=== PATIENT | male | born 1935 | race Caucasian/White ===

== ENCOUNTER 2017-05-18 15:05 | Emergency (ER) | payer OTHER ==
[~2017-05-18] VITALS: Ht 170.2 cm; Wt 56.0 kg
[~2017-05-18 15:05] MED LIST: ALLO300T2 PO; NORV5TAB PO; TERA2CAP3 PO; ZOCO40TA PO
[2017-05-18 15:07] VITALS: BP 141/65; PULSE 60; RESP 13; TEMP 98.4; O2SAT 96
[2017-05-19] MEDS ORDERED: SIMV40TA PO (08:11)
[2017-05-19] MEDS ORDERED: AMLO5 PO (08:11)
[2017-05-19] MEDS ORDERED: ALLO300T2 PO (08:11)
[2017-05-19] MEDS ORDERED: TERA2CAP3 PO (08:11)
[2017-05-19] MEDS ORDERED: MACR100C2 PO (08:21)
== END 2017-05-18 17:03 | disposition left against medical advice (07) ==
LOC: NED 15:05
DX: R10.9 Unspecified abdominal pain (principal); Z53.21 Procedure and treatment not carried out due to patient leaving prior to being seen by health care provider
CPT/HCPCS: 99281

== ENCOUNTER 2017-05-19 07:10 | Emergency (ER) | payer OTHER ==
[~2017-05-19] VITALS: Ht 170.2 cm; Wt 56.0 kg
[2017-05-19 07:14] VITALS: BP 112/67; PULSE 66; RESP 14; TEMP 98.1; O2SAT 97
[2017-05-19 07:30] VITALS: BP 143/68; PULSE 54; RESP 18; O2SAT 96
[2017-05-19] MEDS ORDERED: SODIUM CHLORIDE 0.9% FLUSH 10 ML FLUSH IV FLUSH PRN (07:30)
--- NOTE | 2017-05-19 07:30 | PD ---
HPI Chief Complaint: Complaint Time Seen by Provider: 07:23 Travel History International Travel<30 days: No Contact w/Intl Traveler<30days: No Traveled to known affect area: No History of Present Illness HPI 82-year-old male with history of bladder/ureteral cancer, undergoing care at the [facility], here for evaluation of gross hematuria. The patient has had gross hematuria for the last 4 days. A couple days ago he passed some large blood clots. Since last night his urine has gone from dark red to light pink. He is able to urinate. He did have some dysuria a few days ago. No abdominal pain. No fevers or chills. About a month ago he had 5 tumors removed, and had cystoscopy at that time. He is not on any antiplatelets or anticoagulants. PFSH Past Medical History Cancer: Yes High Cholesterol: Yes Diminished Hearing: No Gout: Yes Genitourinary: Yes (BPH) Kidney Stones: Yes Immunizations Current: Yes Past Surgical History Genitourinary Surgery: Yes (COLON POLYPS REMOVED BY ABD INCISION) Tonsillectomy: Yes Other Surgery: Yes (SEPTAL DEVIATION FIXED AFTER FX NOSE) Social History Alcohol Use: No Tobacco Use: Yes (12ppd) Substance Use: No Allergies-Medications (Allergen,Severity, Reaction): Coded Allergies: Sulfa (Sulfonamide Antibiotics) (Unverified Allergy, Severe, 05/19/17) Reported Meds & Prescriptions Reported Meds & Active Scripts Active Reported Terazosin (Terazosin HCl) 2 Mg Cap 2 Mg PO HS Simvastatin 40 Mg Tab 40 Mg PO HS Norvasc (Amlodipine Besylate) 5 Mg Tab 5 Mg PO DAILY Allopurinol 300 Mg Tab 300 Mg PO DAILY Review of Systems Except as stated in HPI: all other systems reviewed are Neg Physical Exam Narrative GENERAL: Well-developed, well-nourished, pleasant, comfortable, no apparent distress. SKIN: Focused skin assessment warm/dry. No pallor. HEAD: Atraumatic. Normocephalic. EYES: Pupils equal and round. No scleral icterus. No injection or drainage. ENT: Mucous membranes pink and moist. CARDIOVASCULAR: Regular rate and rhythm. RESPIRATORY: No accessory muscle use. Clear to auscultation. Breath sounds equal bilaterally. GASTROINTESTINAL: Abdomen soft, non-tender, nondistended. MUSCULOSKELETAL: No obvious deformities. No clubbing. No cyanosis. No edema. NEUROLOGICAL: Awake and alert. No obvious cranial nerve deficits. Motor grossly within normal limits. Normal speech. PSYCHIATRIC: Appropriate mood and affect; insight and judgment normal. Data Data Last Documented VS Vital Signs Date Time Temp Pulse Resp B/P (MAP) Pulse Ox O2 Delivery O2 Flow Rate FiO2 05/19/17 07:30 54 18 05/19/17 07:30 143/68 (93) 96 Room Air 05/19/17 07:14 98.1 Orders Orders Basic Metabolic Panel (Bmp) (05/19/17 07:28) Complete Blood Count With Diff (05/19/17 07:28) Prothrombin Time / Inr (Pt) (05/19/17 07:28) Act Partial Throm Time (Ptt) (05/19/17 07:28) Urinalysis - C+S If Indicated (05/19/17 07:28) Iv Access Insert/Monitor (05/19/17 07:28) Ecg Monitoring (05/19/17 07:28) Oximetry (05/19/17 07:28) Sodium Chloride 0.9% Flush (Ns Flush) (05/19/17 07:30) Urine Culture (05/19/17 07:40) Labs Laboratory Tests Test 05/19/17 07:40 05/19/17 07:46 Urine Color RED Urine Turbidity HAZY Urine pH 6.0 Urine Specific [place] 1.009 Urine Protein 100 mg/dL Urine Glucose (UA) NEG mg/dL Urine Ketones NEG mg/dL Urine Occult Blood LARGE Urine Nitrite NEG Urine Bilirubin NEG Urine Urobilinogen LESS THAN 2.0 MG/DL Urine Leukocyte Esterase SMALL Urine RBC /hpf Urine WBC /hpf Urine Bacteria MANY /hpf Microscopic Urinalysis Comment CULTURE INDICATED White Blood Count 6.1 TH/MM3 Red Blood Count 3.54 MIL/MM3 Hemoglobin 12.0 GM/DL Hematocrit 34.4 % Mean Corpuscular Volume 97.0 FL Mean Corpuscular Hemoglobin 34.0 PG Mean Corpuscular Hemoglobin Concent 35.0 % Red Cell Distribution Width 13.9 % Platelet Count 179 TH/MM3 Mean Platelet Volume 8.2 FL Neutrophils (%) (Auto) 65.7 % Lymphocytes (%) (Auto) 21.8 % Monocytes (%) (Auto) 10.0 % Eosinophils (%) (Auto) 1.8 % Basophils (%) (Auto) 0.7 % Neutrophils # (Auto) 4.0 TH/MM3 Lymphocytes # (Auto) 1.3 TH/MM3 Monocytes # (Auto) 0.6 TH/MM3 Eosinophils # (Auto) 0.1 TH/MM3 Basophils # (Auto) 0.0 TH/MM3 CBC Comment DIFF FINAL Differential Comment Prothrombin Time 10.4 SEC Prothromb Time International Ratio 0.9 RATIO Activated Partial Thromboplast Time 22.6 SEC Blood Urea Nitrogen 21 MG/DL Creatinine 1.37 MG/DL Random Glucose 103 MG/DL Calcium Level 8.6 MG/DL Sodium Level 142 MEQ/L Potassium Level 3.8 MEQ/L Chloride Level 109 MEQ/L Carbon Dioxide Level 27.2 MEQ/L Anion Gap 6 MEQ/L Estimat Glomerular Filtration Rate 50 ML/MIN MDM Medical Decision Making Medical Screen Exam Complete: Yes Emergency Medical Condition: Yes Medical Record Reviewed: Yes Differential Diagnosis Hematuria secondary to bladder/ureteral cancer, UTI, anemia Narrative Course Vital signs are within normal limits. CBC shows WBC 6.1, hemoglobin 12, hematocrit 34.4, platelets 179. BMP is markable for BUN 21, creatinine 1.37, GFR 50 which is around his baseline. UA shows large occult blood, small leukocyte esterase, innumerable rbc's, innumerable wbc's, many bacteria. The patient had a UTI in 2014 that grew E. faecalis that was sensitive to Macrobid. I will start him on Macrobid today. He is able to urinate. He is stable for discharge home with outpatient follow-up with his primary care physician this week. He was informed on when to return to the emergency department. He verbalizes understanding and agreement with plan. Diagnosis Primary Impression: UTI (urinary tract infection) Qualified Codes: N39.0 - Urinary tract infection, site not specified; R31.9 - Hematuria, unspecified Additional Impression: Gross hematuria Referrals: Primary Care Physician 3 days Additional Instructions: Follow-up with your primary care physician this week. Return to the emergency department for worsening symptoms or any other concerns. Scripts Nitrofurantoin Monohydrate Macrocrystals (Macrobid) 100 Mg Cap 100 MG PO BID for Infection for 7 Days, #14 CAP 0 Refills Prov: Bib Renee MD 05/19/17 Disposition: 01 DISCHARGE HOME Condition: Stable Bib Renee MD May 19, 2017 07:30
[2017-05-19 08:04] LABS: BASOPHIL % 0.7 % (0.0-2.0); EOSINOPHIL # 0.1 TH/MM3 (0-0.4); EOSINOPHIL % 1.8 % (0.0-4.0); HEMATOCRIT 34.4 % (39.0-51.0); HEMO FLAGS DIFF FINAL; LYMPH % 21.8 % (9.0-44.0); LYMPHOCYTE # 1.3 TH/MM3 (1.0-4.8); NEUT % 65.7 % (16.0-70.0); PLATELET COUNT 179 TH/MM3 (150-450); RED BLOOD COUNT 3.54 MIL/MM3 (4.50-5.90); RED CELL DISTRIBUTION WIDTH 13.9 % (11.6-17.2); WHITE BLOOD COUNT 6.1 TH/MM3 (4.0-11.0)
[2017-05-19 08:10] LABS: BACTERIA, URINE MANY /hpf; BLOOD, URINE LARGE (NEG); COMMENT (UR) CULTURE INDICATED; CULTURE IF INDICATED CULTURE INDICATED; GLUCOSE,URINE NEG (NEG); KETONE, URINE NEG (NEG); NITRITE,URINE NEG (NEG); URINE COLOR RED (YELLW/STRAW)
[2017-05-19 08:11] LABS: APTT (PATIENT) 22.6 SEC (24.3-30.1); INTERNATIONAL NORMALIZED RATIO 0.9 RATIO; PROTHROMBIN TIME - PATIENT 10.4 SEC (9.8-11.6)
[2017-05-19] MEDS ORDERED: SIMV40TA PO (08:11)
[2017-05-19] MEDS ORDERED: TERA2CAP3 PO (08:11)
[2017-05-19] MEDS ORDERED: AMLO5 PO (08:11)
[2017-05-19] MEDS ORDERED: ALLO300T2 PO (08:11)
[2017-05-19 08:13] LABS: BICARBONATE 27.2 MEQ/L (21.0-32.0); POTASSIUM 3.8 MEQ/L (3.5-5.1)
[2017-05-19] MEDS ORDERED: MACR100C2 PO (08:21)
[2017-05-19] MEDS ORDERED: NITROFURANTOIN MONOHYD MACROCR 100 MG CAP PO ONE (08:30)
[2017-05-19 09:03] VITALS: BP 144/74
== END 2017-05-19 09:05 | disposition home or self-care (01) ==
LOC: NEPE 07:10
DX: N39.0 Urinary tract infection, site not specified (principal); R31.0 Gross hematuria; B95.2 Enterococcus as the cause of diseases classified elsewhere; E78.00 Pure hypercholesterolemia, unspecified; F17.200 Nicotine dependence, unspecified, uncomplicated; Z85.51 Personal history of malignant neoplasm of bladder; Z87.39 Personal history of other diseases of the musculoskeletal system and connective tissue; Z87.438 Personal history of other diseases of male genital organs; Z87.442 Personal history of urinary calculi
CPT/HCPCS: 80048; 81001; 85025; 85610; 85730; 87077; 87086; 87186; 99283

== ENCOUNTER 2017-12-11 12:18 | Emergency (ER) | payer OTHER ==
[~2017-12-11] VITALS: Ht 170.2 cm; Wt 56.0 kg
[~2017-12-11 12:18] MED LIST changes: +AMLO5 PO; +MACR100C2 PO; -NORV5TAB PO; +SIMV40TA PO; -ZOCO40TA PO
[2017-12-11 12:28] VITALS: BP 123/58; PULSE 57; RESP 16; TEMP 97.3; O2SAT 99
--- NOTE | 2017-12-11 13:20 | PD ---
HPI Chief Complaint: Complaint Time Seen by Provider: 12:37 Travel History International Travel<30 days: No Contact w/Intl Traveler<30days: No Traveled to known affect area: No History of Present Illness HPI 82-year-old male that presents to the ED for evaluation of hematuria. Per patient for the past 3 days he is having polyuria as well as hematuria. Patient has a history of bladder cancer and this is not uncommon for him. Per patient he has been able to follow with his doctor and his urologist but has not been able to be followed by his urologist recently. Per patient he has an appointment on January 07 for evaluation of this. Per patient he went to see his doctor today who told him to come here. Per patient he has had this bleeding before. Per patient he usually gets his cancer resected by his urologist in [place]. Per patient he follows with the [facility] for [facility] care. He states that he has been peeing a lot more of the P is not really P and is more blood. Denies take any blood thinners. Allergy to sulfa. No bowel movement issues. No chest pain or shortness of breath. No falls or injuries. Patient shows me his urine today and is dark and bloody. Allergy to sulfa. States having burning urination but otherwise unremarkable. Per patient is been going almost every 10 minutes. PFSH Past Medical History Cancer: Yes High Cholesterol: Yes Diminished Hearing: No Gout: Yes Genitourinary: Yes (BPH, BLADDER CA) Kidney Stones: Yes Immunizations Current: Yes Past Surgical History Genitourinary Surgery: Yes (COLON POLYPS REMOVED BY ABD INCISION) Tonsillectomy: Yes Other Surgery: Yes (SEPTAL DEVIATION FIXED AFTER FX NOSE) Social History Alcohol Use: No Tobacco Use: Yes (1/2ppd) Substance Use: No (3 cigarettes daily ) Allergies-Medications (Allergen,Severity, Reaction): Coded Allergies: Sulfa (Sulfonamide Antibiotics) (Unverified Allergy, Severe, 12/11/17) Reported Meds & Prescriptions Reported Meds & Active Scripts Active Macrobid (Nitrofurantoin Monoh/Nitrofur Macro) 100 Mg Cap 100 Mg PO BID 10 Days Reported Terazosin (Terazosin HCl) 2 Mg Cap 2 Mg PO HS Simvastatin 40 Mg Tab 40 Mg PO HS Norvasc (Amlodipine Besylate) 5 Mg Tab 5 Mg PO DAILY Allopurinol 300 Mg Tab 300 Mg PO DAILY Review of Systems Except as stated in HPI: all other systems reviewed are Neg Physical Exam Narrative GENERAL: SKIN: Warm and dry. HEAD: Atraumatic. Normocephalic. EYES: Pupils equal and round. No scleral icterus. No injection or drainage. ENT: No nasal bleeding or discharge. Mucous membranes pink and moist. Tongue is midline. No uvula radiation. NECK: Trachea midline. No JVD. CARDIOVASCULAR: Regular rate and rhythm. No murmurs, S3, S4. RESPIRATORY: No accessory muscle use. Clear to auscultation. Breath sounds equal bilaterally. GASTROINTESTINAL: Abdomen soft, non-tender, nondistended. Hepatic and splenic margins not palpable. MUSCULOSKELETAL: Extremities without clubbing, cyanosis, or edema. No obvious deformities. Full range of motion of the upper and lower extremities bilaterally. 2+ pulses bilaterally. NEUROLOGICAL: Awake and alert. No obvious cranial nerve deficits. Motor grossly within normal limits. Five out of 5 muscle strength in the arms and legs. Normal speech. PSYCHIATRIC: Appropriate mood and affect; insight and judgment normal. Data Data Last Documented VS Vital Signs Date Time Temp Pulse Resp B/P (MAP) Pulse Ox O2 Delivery O2 Flow Rate FiO2 12/11/17 12:28 97.3 57 16 123/58 (79) 99 Orders Orders Complete Blood Count With Diff (12/11/17 12:37) Comprehensive Metabolic Panel (12/11/17 12:37) Prothrombin Time / Inr (Pt) (12/11/17 12:37) Act Partial Throm Time (Ptt) (12/11/17 12:37) Urinalysis - C+S If Indicated (12/11/17 12:37) Magnesium (Mg) (12/11/17 12:37) Iv Access Insert/Monitor (12/11/17 12:37) Type And Screen (12/11/17 12:37) Ct Abd/Pel W/O Iv Contrast (12/11/17 ) Urine Culture (12/11/17 13:09) Nitrofurantoin Monohyd Macrocr (Macrobid (12/11/17 15:30) Ed Discharge Order (12/11/17 15:26) Labs Laboratory Tests Test 12/11/17 13:07 12/11/17 13:09 White Blood Count 5.7 TH/MM3 Red Blood Count 3.46 MIL/MM3 Hemoglobin 11.4 GM/DL Hematocrit 33.7 % Mean Corpuscular Volume 97.3 FL Mean Corpuscular Hemoglobin 33.0 PG Mean Corpuscular Hemoglobin Concent 33.9 % Red Cell Distribution Width 14.6 % Platelet Count 213 TH/MM3 Mean Platelet Volume 7.9 FL Neutrophils (%) (Auto) 70.2 % Lymphocytes (%) (Auto) 17.3 % Monocytes (%) (Auto) 7.9 % Eosinophils (%) (Auto) 1.6 % Basophils (%) (Auto) 3.0 % Neutrophils # (Auto) 4.0 TH/MM3 Lymphocytes # (Auto) 1.0 TH/MM3 Monocytes # (Auto) 0.4 TH/MM3 Eosinophils # (Auto) 0.1 TH/MM3 Basophils # (Auto) 0.2 TH/MM3 CBC Comment DIFF FINAL Differential Comment Prothrombin Time 10.2 SEC Prothromb Time International Ratio 1.0 RATIO Activated Partial Thromboplast Time 25.3 SEC Blood Urea Nitrogen 19 MG/DL Creatinine 1.28 MG/DL Random Glucose 90 MG/DL Total Protein 7.3 GM/DL Albumin 3.9 GM/DL Calcium Level 9.1 MG/DL Magnesium Level 2.4 MG/DL Alkaline Phosphatase 78 U/L Aspartate Amino Transf (AST/SGOT) 12 U/L Alanine Aminotransferase (ALT/SGPT) 16 U/L Total Bilirubin 0.7 MG/DL Sodium Level 142 MEQ/L Potassium Level 4.2 MEQ/L Chloride Level 107 MEQ/L Carbon Dioxide Level 29.6 MEQ/L Anion Gap 5 MEQ/L Estimat Glomerular Filtration Rate 54 ML/MIN Urine Color LIGHT-RED Urine Turbidity HAZY Urine pH 6.5 Urine Specific [place] 1.019 Urine Protein 100 mg/dL Urine Glucose (UA) NEG mg/dL Urine Ketones TRACE mg/dL Urine Occult Blood LARGE Urine Nitrite NEG Urine Bilirubin NEG Urine Urobilinogen LESS THAN 2.0 MG/DL Urine Leukocyte Esterase NEG Urine RBC /hpf Urine WBC /hpf Urine Squamous Epithelial Cells 5 /hpf Urine Bacteria MANY /hpf Urine Mucus FEW /lpf Microscopic Urinalysis Comment CULTURE INDICATED MDM Medical Decision Making Medical Screen Exam Complete: Yes Emergency Medical Condition: Yes Medical Record Reviewed: Yes Interpretation(s) CBC & BMP Diagram 12/11/17 13:07 Total Protein 7.3, Albumin 3.9, Calcium Level 9.1, Magnesium Level 2.4, Alkaline Phosphatase 78, Aspartate Amino Transf (AST/SGOT) 12 L, Alanine Aminotransferase (ALT/SGPT) 16, Total Bilirubin 0.7 Last Impressions Abdomen/Pelvis CT 12/11/17 0000 Signed Impressions: Service Date/Time: Monday, December 11, 2017 14:16 - CONCLUSION: 1. Massive left-sided hydronephrosis extending to the very distal left ureter near the UVJ. The terminal left ureter is hyperdense but not dilated with a large hyperdense mass in the posterior bladder which reflects at least in part blood products/hematoma. Underlying bladder or ureteral mass should be excluded. 2. Very mild right-sided hydronephrosis. 3. 7 mm hypodense lesion in the body of the pancreas which is too small to fully characterize. These can be further characterized with pancreatic mass protocol CT exam or MRI exam on an outpatient basis as clinically appropriate. Eric Murray MD UA shows blood and possible UTI Differential Diagnosis Hematuria versus UTI versus polyuria versus dysuria versus kidney stone versus acute on chronic hematuria Narrative Course 82-year-old male that presents to the ED for evaluation of hematuria. Patient was properly examined and was found to have signs and symptoms consistent with hematuria. Likely from the cancer. We will do basic blood work and urine test to check for possible infection as patient has had infection in the past. He appears to be well. This appears to be likely chronic from his cancer. Labs showed UTI and hematuria otherwise unremarkable. Patient does have a known left -sided bladder mass and hydronephrosis which appears to be chronic. There is a family member in the room who provides more information to the patient. My attending Dr. Hurt evaluated the patient and discussed the results with the patient and family. They agree with discharge and follow-up with urologist. Patient will be started on Macrobid for infection. Follow-up with PCP. See ED if worsening symptoms. Given copy of results of the CAT scan Diagnosis Primary Impression: UTI (urinary tract infection) Qualified Codes: N30.01 - Acute cystitis with hematuria Additional Impression: Bladder mass Patient Instructions: General Instructions Additional Instructions: Take medication as prescribed. Follow-up with urology. See ED if worsening symptoms. Med/Other Pt SpecificInfo: Prescription(s) given Scripts Nitrofurantoin Monohydrate Macrocrystals (Macrobid) 100 Mg Cap 100 MG PO BID for Infection for 10 Days, #20 CAP 0 Refills Prov: Yeny Hurt MD 12/11/17 Disposition: 01 DISCHARGE HOME Condition: Stable Richard Ibarra Dec 11, 2017 13:19
[2017-12-11 13:33] LABS: BASOPHIL # 0.2 TH/MM3 (0-0.2); EOSINOPHIL # 0.1 TH/MM3 (0-0.4); EOSINOPHIL % 1.6 % (0.0-4.0); HEMATOCRIT 33.7 % (39.0-51.0); HEMOGLOBIN 11.4 GM/DL (13.0-17.0); LYMPH % 17.3 % (9.0-44.0); MEAN CELL VOLUME 97.3 FL (80.0-100.0); MEAN CORPUSCULAR HGB CONC 33.9 % (32.0-36.0); MEAN PLATELET VOLUME 7.9 FL (7.0-11.0); MONO % 7.9 % (0.0-8.0); MONOCYTE # 0.4 TH/MM3 (0-0.9); NEUT % 70.2 % (16.0-70.0); PLATELET COUNT 213 TH/MM3 (150-450); RED BLOOD COUNT 3.46 MIL/MM3 (4.50-5.90); RED CELL DISTRIBUTION WIDTH 14.6 % (11.6-17.2); WHITE BLOOD COUNT 5.7 TH/MM3 (4.0-11.0)
[2017-12-11 13:39] LABS: PROTHROMBIN TIME - PATIENT 10.2 SEC (9.8-11.6)
[2017-12-11 13:48] LABS: ALBUMIN 3.9 GM/DL (3.4-5.0); ALT (GPT) 16 U/L (12-78); BICARBONATE 29.6 MEQ/L (21.0-32.0); BLOOD UREA NITROGEN 19 MG/DL (7-18); CALCIUM 9.1 MG/DL (8.5-10.1); CHLORIDE 107 MEQ/L (98-107); CREATININE 1.28 MG/DL (0.60-1.30); GLOMERULAR FILTRATION RATE 54 ML/MIN (>89); GLUCOSE,RANDOM 90 MG/DL (74-106); MAGNESIUM 2.4 MG/DL (1.5-2.5); SODIUM (NA) 142 MEQ/L (136-145)
[2017-12-11 13:55] LABS: ALKALINE PHOSPHATASE 78 U/L (45-117); AST (GOT) 12 U/L (15-37); TOTAL BILIRUBIN ADULT 0.7 MG/DL (0.2-1.0); TOTAL PROTEIN 7.3 GM/DL (6.4-8.2)
[2017-12-11 14:25] LABS: BACTERIA, URINE MANY /hpf; BILIRUBIN, URINE NEG (NEG); BLOOD, URINE LARGE (NEG); GLUCOSE,URINE NEG (NEG); KETONE, URINE TRACE mg/dL (NEG); MUCUS URINE FEW /lpf (OCC); NITRITE,URINE NEG (NEG); PH, URINE 6.5 (5.0-8.5); SQUAMOUS EPITHELIAL CELL URINE 5 /hpf (0-5); URINE LEUKOCYTE ESTERASE NEG (NEG)
[2017-12-11 14:26] LABS: URINE COLOR LIGHT-RED (YELLW/STRAW)
--- NOTE | 2017-12-11 15:14 | RADRPT ---
EXAM DATE/TIME: 12/11/2017 14:16 [facility] COMPARISON: No previous studies available for comparison. INDICATIONS : Hematurea ORAL CONTRAST: No oral contrast ingested. RADIATION DOSE: 7.17 CTDIvol (mGy) MEDICAL HISTORY : Carcinoma, bladder. Bladder cancer SURGICAL HISTORY : None. ENCOUNTER: Initial ACUITY: 3 days PAIN SCALE: 0/10 LOCATION: Abdomen TECHNIQUE: Volumetric scanning of the abdomen and pelvis was performed. Using automated exposure control and adjustment of the mA and/or kV according to patient size, radiation dose was kept as low as reasonably achievable to obtain optimal diagnostic quality images. DICOM format image data is av ailable electronically for review and comparison. FINDINGS: LOWER LUNGS: The visualized lower lungs are clear. LIVER: Homogeneous density without lesion. There is no dilation of the biliary tree. No calcifi ed gallstones. SPLEEN: Normal size without lesion. PANCREAS: 7 mm hypodense lesion in the body of the pancreas which is too small to fully character ize. Pancreas is otherwise unremarkable. No peripancreatic calcifications, fluid collections or to at rophy. KIDNEYS: Massive left-sided hydronephrosis and hydroureter extending to the distal ureter. The te rminal left ureter is hyperdense but not significantly dilated. There is diffuse cortical thinning welch ggesting some degree of chronicity to this obstruction. Punctate calyceal calculus in the mid right k idney. There is very mild right-sided hydronephrosis. There is a subcentimeter cystic lesion in the m id right kidney which is too small to characterize. Right kidney is otherwise unremarkable. ADRENAL GLANDS: Within normal limits. VASCULAR: Atherosclerotic aspirations of the infrarenal aorta without aneurysm. BOWEL/MESENTERY: Moderate sigmoid diverticulosis without significant inflammatory change. Probabl e is appears grossly unremarkable without obstruction. ABDOMINAL WALL: Within normal limits. RETROPERITONEUM: There is no lymphadenopathy. BLADDER: Moderately distended. Large posterior dependent hyperdense mass in the bladder. REPRODUCTIVE: Prostate is nonspecifically enlarged. INGUINAL: There is no lymphadenopathy or hernia. MUSCULOSKELETAL: No abnormal focal lytic or blastic bony lesions. CONCLUSION: 1. Massive left-sided hydronephrosis extending to the very distal left ureter near the UVJ. The termi nal left ureter is hyperdense but not dilated with a large hyperdense mass in the posterior bladder w hich reflects at least in part blood products/hematoma. Underlying bladder or ureteral mass should b e excluded. 2. Very mild right-sided hydronephrosis. 3. 7 mm hypodense lesion in the body of the pancreas which is too small to fully characterize. These can be further characterized with pancreatic mass protocol CT exam or MRI exam on an outpatient basis as clinically appropriate. Eric Murray MD on December 11, 2017 at 14:30 Board Certified Radiologist. This report was verified electronically.
[2017-12-11] MEDS ORDERED: MACR100C2 PO (15:25)
[2017-12-11] MEDS ORDERED: NITROFURANTOIN MONOHYD MACROCR 100 MG CAP PO ONE (15:30)
--- NOTE | 2017-12-11 15:50 | PD ---
Physical Exam Narrative GENERAL: 82-year-old male in no apparent distress SKIN: Focused skin assessment warm/dry. HEAD: Atraumatic. Normocephalic. EYES: Pupils equal and round. No scleral icterus. No injection or drainage. ENT: No nasal bleeding or discharge. Mucous membranes pink and moist. NECK: Trachea midline. CARDIOVASCULAR: Regular rate and rhythm. RESPIRATORY: No accessory muscle use. no increased effort. GASTROINTESTINAL: Abdomen soft, non-tender, nondistended MUSCULOSKELETAL: No obvious deformities. No clubbing. No cyanosis. No edema. NEUROLOGICAL: Awake and alert. moves all extremities. Normal speech. Data Data Last Documented VS Vital Signs Date Time Temp Pulse Resp B/P (MAP) Pulse Ox O2 Delivery O2 Flow Rate FiO2 12/11/17 12:28 97.3 57 16 123/58 (79) 99 Orders Orders Complete Blood Count With Diff (12/11/17 12:37) Comprehensive Metabolic Panel (12/11/17 12:37) Prothrombin Time / Inr (Pt) (12/11/17 12:37) Act Partial Throm Time (Ptt) (12/11/17 12:37) Urinalysis - C+S If Indicated (12/11/17 12:37) Magnesium (Mg) (12/11/17 12:37) Iv Access Insert/Monitor (12/11/17 12:37) Type And Screen (12/11/17 12:37) Ct Abd/Pel W/O Iv Contrast (12/11/17 ) Urine Culture (12/11/17 13:09) Nitrofurantoin Monohyd Macrocr (Macrobid (12/11/17 15:30) Ed Discharge Order (12/11/17 15:26) Labs Laboratory Tests Test 12/11/17 13:07 12/11/17 13:09 White Blood Count 5.7 TH/MM3 Red Blood Count 3.46 MIL/MM3 Hemoglobin 11.4 GM/DL Hematocrit 33.7 % Mean Corpuscular Volume 97.3 FL Mean Corpuscular Hemoglobin 33.0 PG Mean Corpuscular Hemoglobin Concent 33.9 % Red Cell Distribution Width 14.6 % Platelet Count 213 TH/MM3 Mean Platelet Volume 7.9 FL Neutrophils (%) (Auto) 70.2 % Lymphocytes (%) (Auto) 17.3 % Monocytes (%) (Auto) 7.9 % Eosinophils (%) (Auto) 1.6 % Basophils (%) (Auto) 3.0 % Neutrophils # (Auto) 4.0 TH/MM3 Lymphocytes # (Auto) 1.0 TH/MM3 Monocytes # (Auto) 0.4 TH/MM3 Eosinophils # (Auto) 0.1 TH/MM3 Basophils # (Auto) 0.2 TH/MM3 CBC Comment DIFF FINAL Differential Comment Prothrombin Time 10.2 SEC Prothromb Time International Ratio 1.0 RATIO Activated Partial Thromboplast Time 25.3 SEC Blood Urea Nitrogen 19 MG/DL Creatinine 1.28 MG/DL Random Glucose 90 MG/DL Total Protein 7.3 GM/DL Albumin 3.9 GM/DL Calcium Level 9.1 MG/DL Magnesium Level 2.4 MG/DL Alkaline Phosphatase 78 U/L Aspartate Amino Transf (AST/SGOT) 12 U/L Alanine Aminotransferase (ALT/SGPT) 16 U/L Total Bilirubin 0.7 MG/DL Sodium Level 142 MEQ/L Potassium Level 4.2 MEQ/L Chloride Level 107 MEQ/L Carbon Dioxide Level 29.6 MEQ/L Anion Gap 5 MEQ/L Estimat Glomerular Filtration Rate 54 ML/MIN Urine Color LIGHT-RED Urine Turbidity HAZY Urine pH 6.5 Urine Specific [place] 1.019 Urine Protein 100 mg/dL Urine Glucose (UA) NEG mg/dL Urine Ketones TRACE mg/dL Urine Occult Blood LARGE Urine Nitrite NEG Urine Bilirubin NEG Urine Urobilinogen LESS THAN 2.0 MG/DL Urine Leukocyte Esterase NEG Urine RBC /hpf Urine WBC /hpf Urine Squamous Epithelial Cells 5 /hpf Urine Bacteria MANY /hpf Urine Mucus FEW /lpf Microscopic Urinalysis Comment CULTURE INDICATED MDM Supervised Visit with SYLVESTER: Yes Interpretation(s) CBC & BMP Diagram 12/11/17 13:07 Total Protein 7.3, Albumin 3.9, Calcium Level 9.1, Magnesium Level 2.4, Alkaline Phosphatase 78, Aspartate Amino Transf (AST/SGOT) 12 L, Alanine Aminotransferase (ALT/SGPT) 16, Total Bilirubin 0.7 Last 24 hours Impressions Abdomen/Pelvis CT 12/11/17 0000 Signed Impressions: Service Date/Time: Monday, December 11, 2017 14:16 - CONCLUSION: 1. Massive left-sided hydronephrosis extending to the very distal left ureter near the UVJ. The terminal left ureter is hyperdense but not dilated with a large hyperdense mass in the posterior bladder which reflects at least in part blood products/hematoma. Underlying bladder or ureteral mass should be excluded. 2. Very mild right-sided hydronephrosis. 3. 7 mm hypodense lesion in the body of the pancreas which is too small to fully characterize. These can be further characterized with pancreatic mass protocol CT exam or MRI exam on an outpatient basis as clinically appropriate. Eric Murray MD Narrative Course I, Dr. mesa, have reviewed the advance practice practitioner's documentation and am in agreement, met with the patient face to face, made the diagnosis, and the medical decision making was done by me. *My assessment and Findings: 82 y/o male presents with hematuria. Workup shows a mass with hydronephrosis. Patient states he is aware of this and follows with a urologist at [facility]. He states that he knows it goes up into his ureter and at one point he was recommended to have his kidney taken out. He agrees to antibiotic for acute urinary tract infection and to call his urologist tomorrow for close follow-up. Creatinine is stable. We will give copy of CT report for outpatient follow-up. Questions answered Diagnosis Primary Impression: UTI (urinary tract infection) Qualified Codes: N30.01 - Acute cystitis with hematuria Additional Impressions: Bladder mass Hydronephrosis Qualified Codes: N13.30 - Unspecified hydronephrosis Patient Instructions: General Instructions Additional Instruction: Take medication as prescribed. Follow-up with urology this week. See ED if worsening symptoms. Med/Other Pt SpecificInfo: Prescription(s) given Scripts Nitrofurantoin Monohydrate Macrocrystals (Macrobid) 100 Mg Cap 100 MG PO BID for Infection for 10 Days, #20 CAP 0 Refills Prov: Yeny Mesa MD 12/11/17 Disposition: DISCHARGE HOME Condition: Stable Yeny Mesa MD Dec 11, 2017 15:50
== END 2017-12-11 16:37 | disposition home or self-care (01) ==
LOC: NEPE 12:18
DX: N30.01 Acute cystitis with hematuria (principal); N13.30 Unspecified hydronephrosis; B96.89 Other specified bacterial agents as the cause of diseases classified elsewhere; K86.9 Disease of pancreas, unspecified; E78.00 Pure hypercholesterolemia, unspecified; F17.210 Nicotine dependence, cigarettes, uncomplicated; Z85.51 Personal history of malignant neoplasm of bladder; Z87.442 Personal history of urinary calculi; Z88.2 Allergy status to sulfonamides; Z79.899 Other long term (current) drug therapy
CPT/HCPCS: 74176; 80053; 81001; 83735; 85025; 85610; 85730; 86850; 86900; 86901; 87086; 99283